=== PATIENT | male | born 1975 | race Caucasian/White ===

== ENCOUNTER 2020-06-19 12:19 | Emergency (ER) | payer SELFPAY ==
[~2020-06-19] VITALS: Ht 182.9 cm; Wt 81.6 kg
[~2020-06-19 12:19] MED LIST: CYCL10TA9 PO; NAPR-1071 PO; PRD20T PO; blood pressure med
--- NOTE | 2020-06-19 13:00 | NUR ---
X2 sutures removed from L upper forehead. x3 sutures removed from L lateral eyebrow. X4 sutures removed from R medial eyebrow. No redness, swelling, or drainage noted to wound beds listed above. Skin well approximated.
[2020-06-19] MEDS ORDERED: CEPH500T PO (13:17)
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
[2020-06-19] MEDS ORDERED: LIDOCAINE 1% INJ 20 ML 20 ML VIAL INJ ONE (13:30)
[2020-06-19] MEDS ORDERED: cefTRIAXone 1,000 MG/2.86 ml vial (IM ONLY) IM SCH (13:30)
[2020-06-19] MEDS ORDERED: KETOROLAC 60 MG/2 ML VIAL IM ONE (13:30)
--- NOTE | 2020-06-19 13:38 | NUR ---
Unable to scan medications d/t scanner not working.
[2020-06-19 13:40] VITALS: BP 111/78
== END 2020-06-19 13:41 | disposition home or self-care (01) ==
LOC: EDUNIT# 12:19 → ER 12:24
DX: Z48.02 Encounter for removal of sutures (principal); T81.49XA Infection following a procedure, other surgical site, initial encounter; Z79.52 Long term (current) use of systemic steroids; Z88.5 Allergy status to narcotic agent; Z88.6 Allergy status to analgesic agent
CPT/HCPCS: 99284

== ENCOUNTER 2021-01-08 09:00 | Emergency (ER) | payer SELFPAY ==
[~2021-01-08] VITALS: Ht 182.8 cm; Wt 85.0 kg
[~2021-01-08 09:00] MED LIST changes: +CEPH500T PO
[2021-01-08] MEDS ORDERED: ONDA4TAB11 PO (09:40)
--- NOTE | 2021-01-08 09:40 | ED Abdominal Pain ---
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 No blood in the stool. Has had constipation for the past couple days so he took a couple Dulcolax suppositories which caused his pain to get worse. He has not taken any by mouth laxatives. Is not able to pass stool for 2 days. He says he had an episode of constipation about 6 months ago but has not really had problems with this frequently in the past. He is not having any fevers nausea sweats chills. No abdominal surgeries. No history of diverticulitis. Allergies and Home Medications Allergies Coded Allergies: acetaminophen (Verified Adverse Reaction, Intermediate, 10/29/15) AMS codeine (Verified Adverse Reaction, Intermediate, 10/29/15) AMS Home Medications Cephalexin 500 Mg Tablet, 500 MG PO TID Prescribed by: VÍCTOR MURRY on 06/19/20 1317 Cyclobenzaprine HCl 10 Mg Tablet, 10 MG PO Q8H PRN for SPASMS Prescribed by: TANK CROWLEY on 10/29/15 1419 Naproxen 500 Mg Tablet, 500 MG PO BID Prescribed by: TANK CROWLEY on 10/29/15 1419 Ondansetron 4 Mg Tab.rapdis, 4 MG PO Q6H PRN for NAUSEA/VOMITING Prescribed by: BERE WATTS on 01/08/21 0940 Prednisone 20 Mg Tab, 40 MG PO DAILY Prescribed by: TANK CROWLEY on 10/29/15 1419 Patient Home Medication List Home Medication List Reviewed: Yes Review of Systems Review of Systems Constitutional: No chills, No diaphoresis EENTM: No Blurred Vision, No Double Vision Respiratory: Denies Cough, Denies Shortness of Air Cardiovascular: Denies Chest Pain, Denies Lightheadedness Gastrointestinal: See HPI; Denies Abdomen Distended; Abdominal Pain, Constipated; Denies Diarrhea Genitourinary: Denies Burning, Denies Discharge Musculoskeletal: No back pain, No joint pain All Other Systems Reviewed Negative Unless Noted: Yes Past Mjkvbos-Qzcchs-Yoowsq Hx Patient Social History Alcohol Use: Denies Use Smoking Status: Current Everyday Smoker Type Used: Cigarettes 2nd Hand Smoke Exposure: Yes Recent Infectious Disease Expo: No Past Medical History Surgeries: Yes (r knee) Orthopedic Respiratory: No Cardiac: Yes Hypertension Neurological: No Reproductive Disorders: No Gastrointestinal: No Musculoskeletal: No Endocrine: No Cancer: No Psychosocial: No Integumentary: No Blood Disorders: No Family Medical History No Pertinent Family Hx Physical Exam Vital Signs Vital Signs - First Documented 01/08/21 09:04 Temp 36.8 Pulse 100 Resp 18 B/P (MAP) 142/103 (116) Pulse Ox 98 O2 Delivery Room Air Capillary Refill : Less Than 3 Seconds Height/Weight/BMI Height: 6'" Weight: 180lbs. oz. [id number]; 25.00 BMI Method:Stated General Appearance: WD/WN, mild distress HEENT: PERRL/EOMI, pharynx normal Neck: full range of motion, normal inspection Respiratory: no respiratory distress, no accessory muscle use Cardiovascular: normal peripheral pulses, regular rate, rhythm Gastrointestinal: normal bowel sounds, soft, tenderness Extremities: normal range of motion, normal capillary refill Neurologic/Psychiatric: alert, normal mood/affect, oriented x 3 Skin: normal color, warm/dry Progress/Results/Core Measures Results/Orders Vital Signs/I&O 01/08/21 01/08/21 09:04 10:00 Temp 36.8 36.8 Pulse 100 100 Resp 18 18 B/P (MAP) 142/103 (116) 142/103 (116) Pulse Ox 98 98 O2 Delivery Room Air Blood Pressure Mean: 116 Progress Progress Note : Time: 09:38 Progress Note We discussed and offered to do a work-up but the patient states he would like to just try something to get his constipation resolved. Patient declined IM Toradol as he states he is been 6 months clean off of methamphetamines and would not like to even see a needle. Recommended simethicone, MiraLAX and mag citrate in addition to suppository. We will give him some Zofran and return precautions and the patient is okay with this plan. Departure Impression Primary Impression: Constipation Qualified Codes: K59.00 - Constipation, unspecified Disposition: HOME, SELF-CARE Condition: Stable Departure-Patient Inst. Decision time for Depature: 09:38 Referrals: NO,LOCAL PHYSICIAN (PCP/Family) Primary Care Physician Patient Instructions: Constipation, Adult (DC) Add. Discharge Instructions: Drink plenty of fluids and use MiraLAX 1 capful in 6 to 8 ounces of fluid of your choice up to 4 times a day. Mag citrate 1-2 bottles a day. You may use suppositories or enema if you wish. Simethicone or Gas-X will help relieve some of the pain and pressure from the medications. Tylenol 1000 mg every 8 hours necessary for pain. Ibuprofen 800 mg every 8 hours as necessary for pain. Heating pads may also be helpful for pain. Walk around your follow-up with your doctor if you are not seeing improvement over the next couple days. Return to the ER promptly if you are having severe pain despite these house and stay active to help move the stool. Measures or if you develop a fever above 100.3. All discharge instructions reviewed with patient and/or family. Voiced under standing. Scripts Ondansetron (Ondansetron Odt) 4 Mg Tab.rapdis 4 MG PO Q6H PRN for NAUSEA/VOMITING, #8 TAB 0 Refills Prov: BERE WATTS 01/08/21 Work/School Note: Work Release Form Date Seen in the Emergency Department: Jan 08, 2021 Return to Work: Jan 12, 2021 Restrictions: No Restrictions BERE WATTS Jan 08, 2021 09:40
[2021-01-08 10:00] VITALS: BP 142/103
== END 2021-01-08 10:10 | disposition home or self-care (01) ==
LOC: EDUNIT# 09:00 → ER 09:02
DX: K59.00 Constipation, unspecified (principal); I10 Essential (primary) hypertension; F17.210 Nicotine dependence, cigarettes, uncomplicated
CPT/HCPCS: 99281